=== PATIENT | male | born 1960 | race Caucasian/White ===

== ENCOUNTER → 2022-04-29 07:16 | Outpatient (CLI) | payer MEDICARE, OTHER, SELFPAY ==
--- NOTE | ~2022-04-29 | XR_ITS ---
Clinical Indication: Pneumonia PA and lateral views of the chest: Comparison: 04/13/2018 Findings: Stable probable postoperative change in the medial right upper lobe region. No acute pulmon neftali abnormality seen. Cardiomediastinal silhouette is within normal limits. Bones and soft tissues a re unremarkable. Impression: No acute abnormality. Stable probable postoperative change in the medial right upper lobe region. Reviewed, dictated and finalized at location . Impression: No acute abnormality. Stable probable postoperative change in the medial right upper lobe region.
== END ==
PROVIDERS: PCP Family Medicine; Visit Provider Nurse Practitioner Family
DX: J18.9 Pneumonia, unspecified organism (principal)
CPT/HCPCS: 71046